=== PATIENT | female | born 1980 | race Caucasian/White ===

== ENCOUNTER 2017-01-21 07:18 | Day surgery (SDC) | payer OTHER ==
[2017-01-19 12:09] VITALS: BMI 39.9
[~2017-01-21 07:18] MED LIST: LACTATED RINGERS 1,000 ML IV SCH; LIDOCAINE 1% 20 ML VIAL (10MG/ML) FOR IV START INTRADERMA PRN
[2017-01-21 07:35] VITALS: RESP 16; TEMP 98.2
--- NOTE | 2017-01-21 07:36 | P.GSHP ---
History of Present Illness H&P Date: 01/21/17 CHIEF COMPLAINT: GERD HISTORY OF PRESENT ILLNESS: The patient is a 36-year-old female who presents reports gastroesophageal reflux disease. Upper endoscopy was offered for further evaluation and management. PAST MEDICAL HISTORY: Please see list. PAST SURGICAL HISTORY: Please see list. MEDICATIONS: Please see list. ALLERGIES: Please see list. SOCIAL HISTORY: No illicit drug use FAMILY HISTORY: No reports of Crohn disease or ulcerative colitis. REVIEW OF ORGAN SYSTEMS: CONSTITUTIONAL: No reports of fevers or chills. GI: Denies any blood in stools or constipation. PHYSICAL EXAM: VITAL SIGNS: Stable GENERAL: Well-developed and pleasant in no acute distress. HEENT: No scleral icterus. Extraocular movements grossly intact. Moist buccal mucosa. NECK: Supple without lymphadenopathy. CHEST: Unlabored respirations. Equal bilateral excursions. CARDIOVASCULAR: Regular rate and rhythm. Distal 2+ pulses. ABDOMEN: Soft, nondistended. MUSCULOSKELETAL: No clubbing, cyanosis, or edema. ASSESSMENT: 1. Gastroesophageal reflux disease PLAN: 1. Recommend proceeding with an upper endoscopy Past Medical History Past Medical History: Diabetes Mellitus, GERD/Reflux Additional Past Medical History / Comment(s): SPINA BIFIDA-HAS A COMPOSITE LAYUP WORKER SHUNT, KIDNEY STONES, chiari malformation History of Any Multi-Drug Resistant Organisms: None Reported Date of last positivie culture/infection: 03/28/2015 MDRO Source:: rt knee Past Surgical History: Section, Cholecystectomy, Orthopedic Surgery, Ventriculoperitoneal Shunt Additional Past Surgical History / Comment(s): RIGHT ANKLE, RIGHT KIDNEY REMOVED , SPINE CLOSURE Past Anesthesia/Blood Transfusion Reactions: Previous Problems w/ Anesthesia, Motion Sickness Additional Past Anesthesia/Blood Transfusion Reaction / Comment(s): slow to wake up Past Psychological History: Anxiety, Bipolar, Depression, PTSD Smoking Status: Current every day smoker Past Alcohol Use History: Occasional Additional Past Alcohol Use History / Comment(s): SMOKED SINCE AGE 24 Past Drug Use History: None Reported - Past Family History Father History Unknown: Yes Mother Family Medical History: Hyperlipidemia Medications and Allergies Home Medications Medication Instructions Recorded Confirmed Type Insulin Glargine [Lantus] 70 unit SQ HS 12/14/14 01/19/17 History metFORMIN HCL [Glucophage] 1,000 mg PO BID 12/14/14 01/19/17 History Aspirin/Acetaminophen/Caffeine 1 tab PO DAILY PRN 01/06/17 01/19/17 History [Excedrin Migraine Caplet] Gabapentin [Neurontin] 300 mg PO BID 01/06/17 01/19/17 History Topiramate [Topamax] 25 mg PO BID 01/06/17 01/19/17 History Allergies Allergy/AdvReac Type Severity Reaction Status Date / Time niacin Allergy Rash/Hives Verified 01/19/17 12:01 tetrahydrozoline HCl Allergy Rash/Hives Verified 01/19/17 12:01 [From Visine] Surgical - Exam Vital Signs Temp Pulse Resp BP Pulse Ox 98.2 F 87 16 116/82 98 01/21/17 07:33 01/21/17 07:33 01/21/17 07:33 01/21/17 07:33 01/21/17 07:33
[2017-01-21 08:04] LABS: Glucose,Whole Blood 423 mg/dL (75-99)
[2017-01-21] MEDS ORDERED: INSULIN LISPRO (humaLOG) 300 UNIT/3 ML VIAL SQ ONE (08:10)
[2017-01-21 09:08] LABS: Glucose,Whole Blood 409 mg/dL (75-99)
[2017-01-21] MEDS ORDERED: LIDOCAINE 1% INJ 10MG/ML (20 ML MDV) ONE (09:11)
[2017-01-21] MEDS ORDERED: PROPOFOL 10 MG/ML 20 ML VIAL IV ONE (09:11)
--- NOTE | 2017-01-21 09:31 | P.PCN ---
Date of Procedure: 01/21/17 Description of Procedure: PREOPERATIVE DIAGNOSIS: Gastroesophageal reflux disease Epigastric abdominal pain POSTOPERATIVE DIAGNOSIS: Gastroesophageal reflux disease Epigastric abdominal pain Acute with chronic gastritis Duodenitis. OPERATION: Esophagogastroduodenoscopy with biopsies along antrum and duodenum. SURGEON: Cassy Narvaez MD ANESTHESIA: MAC. INDICATIONS: The patient is a 36-year-old female who presents with a history of epigastric abdominal pain and gastroesophageal reflux disease. Benefits and risks of the procedure were described. Informed consent was obtained. DESCRIPTION: The patient was brought into the endoscopy suite and laid in the left lateral decubitus position. An Olympus gastroscope was passed along the posterior oropharynx down to the distal esophagus where the squamocolumnar junction was encountered at 36 cm from the incisors. The stomach was entered and moderate retained food was found. Additional findings are listed below. Biopsies with cold forceps were obtained of the antrum. The first through third portion of the duodenum was examined and remarkable for duodenitis. Retroflexion of the scope confirmed Hill grade III lower esophageal valve. The squamocolumnar junction demostrated mild chronic LA grade A erosive esophagitis. The stomach was desufflated. The patient tolerated the procedure well. FINDINGS: Squamocolumnar junction 36 cm from the incisors. Diaphragmatic hiatus at 36 cm from the incisors Hill grade 3 lower esophageal valve. LA grade A erosive esophagitis, mild. Acute and chronic gastritis along the antrum. Retained food along stomach. Active duodenitis. RECOMMENDATIONS: Further recommendations pending results of pathology report. Upper endoscopy as needed. Plan - Discharge Summary Discharge Medication List Insulin Glargine [Lantus] 70 unit SQ HS 12/14/14 [History] metFORMIN HCL [Glucophage] 1,000 mg PO BID 12/14/14 [History] Aspirin/Acetaminophen/Caffeine [Excedrin Migraine Caplet] 1 tab PO DAILY PRN [History] Gabapentin [Neurontin] 300 mg PO BID 01/06/17 [History] Topiramate [Topamax] 25 mg PO BID 01/06/17 [History]
[2017-01-21 09:36] LABS: Glucose,Whole Blood 295 mg/dL (75-99)
[2017-01-21 10:03] VITALS: BP 134/86; PULSE 91
== END 2017-01-21 10:14 | disposition home or self-care (01) ==
LOC: ORWHC2ENDO 07:18
PROVIDERS: ATTEND Surgery Plastic and Reconstructive Surgery
DX: K29.50 Unspecified chronic gastritis without bleeding (principal); K22.10 Ulcer of esophagus without bleeding; K29.80 Duodenitis without bleeding; F17.200 Nicotine dependence, unspecified, uncomplicated; E11.9 Type 2 diabetes mellitus without complications; Z79.4 Long term (current) use of insulin; Z79.84 Long term (current) use of oral hypoglycemic drugs; Q05.9 Spina bifida, unspecified; Z79.899 Other long term (current) drug therapy; Z88.8 Allergy status to other drugs, medicaments and biological substances
CPT/HCPCS: 88305; 88342; 84703; 43239; J2001; J2704; 76536; 96372; 99283

== ENCOUNTER 2017-01-21 11:32 | Day surgery (SDC) | payer OTHER ==
[2017-01-21 13:04] LABS: Glucose,Whole Blood 357 mg/dL (75-99)
[2017-01-21 13:59] VITALS: PULSE 96; RESP 16; TEMP 98
[2017-01-21 14:00] VITALS: BP 139/82
--- NOTE | 2017-01-21 17:38 | US ---
Discontinued fine-needle aspiration thyroid HISTORY: Thyroid nodule Patient presented with a blood sugar in the 300-400 range. Patient will be rescheduled. IMPRESSION: No fine-needle aspiration performed at this time
== END 2017-01-21 13:30 | disposition home or self-care (01) ==
LOC: RADPROMAIN 11:32
PROVIDERS: ATTEND Surgery Plastic and Reconstructive Surgery
DX: E04.1 Nontoxic single thyroid nodule (principal)
CPT/HCPCS: 76536

== ENCOUNTER 2017-02-17 12:13 | Day surgery (SDC) | payer OTHER ==
[2017-02-17 12:48] VITALS: RESP 18; TEMP 98
--- NOTE | 2017-02-17 13:49 | US ---
EXAMINATION TYPE: US thyroid st tissue head/neck DATE OF EXAM: 02/17/2017 COMPARISON: NONE CLINICAL HISTORY: E04.1 thyroid nodule. GLAND SIZE: Right Lobe: 6.8 x 2.4 x 2.1 cm Overall Parenchyma: homogenous Left Lobe: 5.3 x 1.7 x 1.7 cm Overall Parenchyma: homogeneous Isthmus Thickness: 0.7 cm NODULES RIGHT: # of nodules measured on right: 1 1. 3.5 x 2.2 x 3.2cm isoechoic solid nodule at the lower pole with well-defined margins. This nodul e is wider than tall and shows intranodular vascularity. LEFT: # of nodules measured on left: 0 ISTHMUS: # of nodules measured in the isthmus: 0 Bilateral neck scanned, no evidence of lymphadenopathy. IMPRESSION: SOLITARY RIGHT-SIDED 3.5 CM NODULE. CONSIDERATION MIGHT BE GIVEN TO BIOPSYING THIS LESION.
[2017-02-17 14:26] VITALS: BP 156/81; PULSE 95
--- NOTE | 2017-02-17 15:26 | US ---
EXAMINATION TYPE: US FNA thyroid DATE OF EXAM: 02/17/2017 COMPARISON: Ultrasound same day HISTORY: Thyroid nodule. Maximal barrier technique was utilized. After informed consent, skin overlying the lesion was locali zed with ultrasound and the overlying skin prepped and draped. Ultrasound was utilized using sterile technique. Lidocaine was used for local anesthesia. Five passes with a 25-gauge needle were made int o the nodule and aspirated specimen was submitted to cytology. Following the procedure hemostasis ac hieved. No immediate complication. The patient discharged in stable condition. IMPRESSION: STATUS POST ULTRASOUND GUIDED FINE NEEDLE ASPIRATION OF THYROID NODULE, PATHOLOGY IS PEND ING. THIS PROCEDURE WAS PERFORMED BY THE UNDERSIGNED.
== END 2017-02-17 14:25 | disposition home or self-care (01) ==
LOC: RADPROMAIN 12:13
PROVIDERS: ATTEND Surgery Plastic and Reconstructive Surgery
DX: C73 Malignant neoplasm of thyroid gland (principal)
CPT/HCPCS: 10022; 76536; 76942; 88173; 88305

== ENCOUNTER 2017-04-16 11:23 | Observation (INO) | payer OTHER ==
[2017-04-10 09:18] VITALS: BMI 44.8
--- NOTE | 2017-04-16 11:12 | P.GSHP ---
History of Present Illness H&P Date: 04/16/17 CHIEF COMPLAINT: GERD HISTORY OF PRESENT ILLNESS: Nathalia Santillan is a very young 36-year-old female with poorly controlled diabetes. Her blood sugars average over 300, even up to 500. 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 She is pending consultation with her tube bender in mid April. She now presents for further evaluation and management. Separately, she comes in wheelchair bound with history of spina bifida including STRONG NITRIC OPERATOR shunt. PAST MEDICAL HISTORY: Please see list. PAST SURGICAL HISTORY: Please see list. MEDICATIONS: Please see list. ALLERGIES: Please see list. SOCIAL HISTORY: No illicit drug use FAMILY HISTORY: No reports of Crohn disease or ulcerative colitis. REVIEW OF ORGAN SYSTEMS: Endocrine: History of poorly controlled diabetes, including now thyroid cancer. CONSTITUTIONAL: No fevers or chills. HEENT: Denies any trouble with vision, hearing or nosebleeds. Has difficulty swallowing. LYMPHATIC: Has lumps and bumps around the neck. RESPIRATORY: Denies pneumonia. Denies any troubles with breathing or dyspnea on exertion. CARDIOVASCULAR: Denies any chest pain, palpitations, or recent heart attacks. GASTROINTESTINAL: Denies fatty food intolerance. Denies change in bowel habits and gas bloat. Has GERD GENITOURINARY: Denies any blood in urine or increased urinary frequency. MUSCULOSKELETAL: Has back pain, stiffness or joint arthritis. NEUROLOGIC: Has numbness or tingling along the distal extremities. Has seizure disorders and headaches. PSYCHIATRIC: Denies any depression or suicidal ideation. HEMATOLOGIC: Denies any abnormal bleeding or bruising. BREASTS: Denies any breast lumps, pain or nipple discharge. PHYSICAL EXAM: Vital signs: T: 98.7 degrees. P: 85, R: 16, BP: 132/88 Neck: History of thyroid nodule. GENERAL: Well developed and in no acute distress. Pleasant. HEENT: No sclera icterus. Extraocular movements grossly intact. Moist buccal mucosa. Head is atraumatic, normocephalic. Hears conversational speech. No nasal drainage. CHEST: Non-labored respirations and equal bilateral excursions. CARDIOVASCULAR: Regular rate and rhythm. Palpable 2+ radial pulses. ABDOMEN: Soft. Non-tender. Nondistended. MUSCULOSKELETAL: No clubbing, cyanosis or edema. NEUROLOGIC: Wheelchair bound with paraplegia. PSYCH: Appropriate affect. Alert and oriented to person, place and time. PATHOLOGY REPORT: Consistent with follicular thyroid cancer. ASSESSMENT: 1. Follicular thyroid cancer. 2. Wheelchair bound, history of spina bifida. 3. Poorly controlled diabetes, insulin dependent. 4. Morbid obesity. PLAN: 1. I have had over a 25+ minute conversation regarding the risks of poorly controlled diabetes including loss of vision and kidney failure, as well as neuropathy. 2. I have put her on a 2-week high protein low calorie diet, which will also help with her blood sugars. She was advised to cut down on her carbohydrates as she often selects high starchy foods and breads. 3. She has already established a relationship with tube bender. 4. As she presents with high comorbidities, I have reviewed with her the complications of potential recurrent injury including laryngeal nerve injury as well as bleeding, infection and need for possible neck dissection. 5. Recommended inpatient hospitalization anticipated for at least 2 nights. 6. She will need diabetes education as well. Past Medical History Past Medical History: Cancer, Diabetes Mellitus, GERD/Reflux, Hypertension, Skin Disorder, Thyroid Disorder Additional Past Medical History / Comment(s): SPINA BIFIDA-HAS A STRONG NITRIC OPERATOR SHUNT, chiari malformation, migraines, hx heart murmer, hiatal hernia, chronic constipation, "brown spots on skin", thyroid cancer, self catheterization, hx impacted kidney stone, wheelchair-limited wt bearing on rt side History of Any Multi-Drug Resistant Organisms: None Reported Date of last positivie culture/infection: 03/28/2015 MDRO Source:: rt knee Past Surgical History: Section, Cholecystectomy, Orthopedic Surgery, Ventriculoperitoneal Shunt Additional Past Surgical History / Comment(s): RIGHT ANKLE fusion, RIGHT KIDNEY REMOVED, SPINE CLOSURE surgery form spina bifida, tendon release lin ankles and behind rt knee, Past Anesthesia/Blood Transfusion Reactions: Previous Problems w/ Anesthesia Additional Past Anesthesia/Blood Transfusion Reaction / Comment(s): slow to wake up Smoking Status: Current every day smoker - Past Family History Father History Unknown: Yes Mother Family Medical History: No Reported History Medications and Allergies Home Medications Medication Instructions Recorded Confirmed Type Insulin Glargine [Lantus] 70 unit SQ HS 12/14/14 04/10/17 History metFORMIN HCL [Glucophage] 1,000 mg PO BID 12/14/14 04/10/17 History Gabapentin [Neurontin] 300 mg PO BID 01/06/17 04/10/17 History Topiramate [Topamax] 25 mg PO BID 01/06/17 04/10/17 History Metoclopramide HCl [Reglan] 10 mg PO TID 04/10/17 04/10/17 History Omeprazole [PriLOSEC] 20 mg PO AC-BRKFST 04/10/17 04/10/17 History Allergies Allergy/AdvReac Type Severity Reaction Status Date / Time niacin Allergy Rash/Hives Verified 04/10/17 09:04 tetrahydrozoline HCl Allergy Rash/Hives Verified 04/10/17 09:04 [From Visine]
[~2017-04-16 11:23] MED LIST changes: +DEXAMETHASONE SOD PHOSPHATE 10 MG/ML 1 ML VIAL IV ONE; +ENOXAPARIN 30 MG/0.3 ML SYRINGE SQ ONE; -LACTATED RINGERS 1,000 ML IV SCH; +MIDAZOLAM 2 MG/2 ML VIAL IV PRN; +ONDANSETRON 4 MG/2 ML VIAL IVP ONE; +Pre Op ABX Message 1 EACH MISC MISCELLANE ONE; +SCOPOLAMINE 1.5MG/72HR PATCH TRANSDERM ONE; +ceFAZolin 2 GM in SODIUM CHLORIDE 0.9% 100 ML IVPB ONE
[2017-04-16] MEDS ORDERED: LACTATED RINGERS 1,000 ML IV ONE ×3 (11:42→18:36)
[2017-04-16 12:04] LABS: Basophils % (A) 0 %; CH 30.9; CHCM 34.9; Eosinophils # (A) 0.2 k/uL (0-0.7); Eosinophils % (A) 3 %; HCT 41.6 % (34.0-46.0); HDW 2.79; HGB 14.1 gm/dL (11.4-16.0); Luc % (Auto) 1; Lymphocytes # (A) 2.1 k/uL (1.0-4.8); Lymphocytes % (A) 27 %; MCH 30.2 pg (25.0-35.0); MCV 88.8 fL (80.0-100.0); Mean Platelet Volume 7.6; Monocytes # (A) 0.3 k/uL (0-1.0); Monocytes % (A) 3 %; Neutrophils # (A) 5.2 k/uL (1.3-7.7); Neutrophils % (A) 66 %; RBC 4.69 m/uL (3.80-5.40); RDW 13.6 % (11.5-15.5); WBC (Perox) 8.16
[2017-04-16 12:17] LABS: ALT 48 U/L (9-52); AST 23 U/L (14-36); Alkaline Phosphatase 66 U/L (38-126); Anion Gap 13 mmol/L; Blood Urea Nitrogen 9 mg/dL (7-17); Calcium 9.2 mg/dL (8.4-10.2); Carbon Dioxide 19 mmol/L (22-30); Chloride 107 mmol/L (98-107); Glucose 162 mg/dL (74-99); Non-African American GFR(MDRD) >60 (>60 ml/min/1.73 sqM); Potassium 4.5 mmol/L (3.5-5.1); Sodium 139 mmol/L (137-145); Total Bilirubin 0.3 mg/dL (0.2-1.3); Total Protein 6.9 g/dL (6.3-8.2)
[2017-04-16] MEDS ORDERED: ePHEDrine SULFATE/0.9% NACL/PF 50 MG/5 ML SYRINGE IV ONE (12:56)
[2017-04-16] MEDS ORDERED: HYDROmorphone (PF) 1 MG/ML ONE (12:56)
[2017-04-16] MEDS ORDERED: LIDOCAINE 1% INJ 10MG/ML (20 ML MDV) ONE (12:56)
[2017-04-16] MEDS ORDERED: PROPOFOL 10 MG/ML 20 ML VIAL IV ONE (12:56)
[2017-04-16] MEDS ORDERED: fentaNYL (PF) 50 MCG/ML 2 ML AMP ONE (12:56)
[2017-04-16] MEDS ORDERED: ePHEDrine 50 MG/ML 1 ML AMP ONE (12:56)
[2017-04-16] MEDS ORDERED: MIDAZOLAM 2 MG/2 ML VIAL ONE (12:56)
[2017-04-16] MEDS ORDERED: BUPIVACAINE (PF) 0.5% 30 ML VIAL SQ ONE (13:48)
[2017-04-16] MEDS ORDERED: ONDANSETRON 4 MG/2 ML VIAL IVP PRN (17:06)
[2017-04-16] MEDS ORDERED: NALOXONE 0.4 MG/ML 1 ML VIAL IV PRN (17:06)
--- NOTE | 2017-04-16 17:06 | P.PCN ---
Date of Procedure: 04/16/17 Preoperative Diagnosis: Thyroid cancer, right lobe, uncontrolled diabetes type 2, spina bifida, wheelchair bound, hypertension, history of dysphagia, morbid obesity Postoperative Diagnosis: Same Procedure(s) Performed: Total thyroidectomy with neuromuscular stimulator Implants: Anesthesia: GETA, local Surgeon: Cassy Narvaez Estimated Blood Loss (ml): 50 Pathology: other (Total thyroidectomy with right anterior suture along right thyroid nodule) Condition: stable Disposition: floor Indications for Procedure: Operative Findings: No lymphadenopathy palpated along the entire neck, encased right thyroid nodule inferior lobe, parathyroids identified and spared during procedure. Description of Procedure:
[2017-04-16 17:47] LABS: Glucose,Whole Blood 225 mg/dL (75-99)
[2017-04-16] MEDS ORDERED: INSULIN LISPRO (humaLOG) 300 UNIT/3 ML VIAL SQ ONE (17:47)
[2017-04-16] MEDS: HYDROmorphone 1 MG/ML 1 ML SYRINGE IVP PRN ×3 (17:59→22:31)
[2017-04-16 18:52] LABS: Calcium 8.9 mg/dL (8.4-10.2); Magnesium 1.2 mg/dL (1.6-2.3)
[2017-04-16] MEDS: LACTATED RINGERS 1,000 ML IV SCH (19:53)
[2017-04-16] MEDS: SODIUM CHLORIDE 0.9% 1,000 ML IV SCH (19:54)
[2017-04-16 19:59] LABS: Hemoglobin A1C 10.5 % (4.2-6.1)
[2017-04-16] MEDS: INSULIN LISPRO (humaLOG) 300 UNIT/3 ML VIAL SQ SCH (20:27)
[2017-04-16] MEDS: INSULIN GLARGINE 100 UNIT/ML 10 ML VIAL SQ SCH (20:37)
[2017-04-16] MEDS: MAGNESIUM SULFATE-D5W PMX 1 GM in DEXTROSE/WATER 1 100ML.BAG IVPB SCH (20:37)
[2017-04-16] MEDS: GABAPENTIN 300 MG CAP PO SCH (20:48)
[2017-04-16] MEDS: FAMOTIDINE 20 MG TAB PO SCH (20:48)
[2017-04-16] MEDS: metFORMIN 500 MG TAB PO SCH (20:48)
[2017-04-16] MEDS: METOCLOPRAMIDE 10 MG TAB PO SCH (20:48)
[2017-04-16] MEDS: TOPIRAMATE 25 MG TAB PO SCH (20:48)
[2017-04-17] MEDS: INSULIN LISPRO (humaLOG) 300 UNIT/3 ML VIAL SQ SCH ×4 (01:13→18:31)
[2017-04-17] MEDS: MAGNESIUM SULFATE-D5W PMX 1 GM in DEXTROSE/WATER 1 100ML.BAG IVPB SCH ×5 (01:14→20:12)
[2017-04-17] MEDS: ceFAZolin 2 GM in SODIUM CHLORIDE 0.9% 100 ML IVPB SCH ×2 (02:13→10:41)
[2017-04-17] MEDS: HYDROmorphone 1 MG/ML 1 ML SYRINGE IVP PRN ×2 (05:26→10:44)
[2017-04-17 07:08] LABS: Glucose,Whole Blood 130 mg/dL (75-99)
[2017-04-17 07:59] LABS: Basophils % (A) 0 %; CH 30.7; CHCM 33.9; Eosinophils # (A) 0.1 k/uL (0-0.7); Eosinophils % (A) 1 %; HCT 39.6 % (34.0-46.0); HDW 2.72; Luc % (Auto) 1; Lymphocytes % (A) 20 %; MCH 29.8 pg (25.0-35.0); MCHC 32.7 g/dL (31.0-37.0); MCV 91.1 fL (80.0-100.0); Mean Platelet Volume 7.2; Monocytes # (A) 0.4 k/uL (0-1.0); Monocytes % (A) 4 %; Neutrophils # (A) 7.3 k/uL (1.3-7.7); Neutrophils % (A) 74 %; RBC 4.34 m/uL (3.80-5.40); RDW 13.7 % (11.5-15.5); WBC 9.9 k/uL (3.8-10.6); WBC (Perox) 9.96
[2017-04-17 08:06] LABS: Calcium 8.1 mg/dL (8.4-10.2); Magnesium 1.9 mg/dL (1.6-2.3); Phosphorous 4.9 mg/dL (2.5-4.5)
[2017-04-17] MEDS: ENOXAPARIN 30 MG/0.3 ML SYRINGE SQ SCH (08:12)
[2017-04-17] MEDS: LACTATED RINGERS 1,000 ML IV SCH (08:27)
[2017-04-17] MEDS: metFORMIN 500 MG TAB PO SCH (09:02)
[2017-04-17] MEDS: FAMOTIDINE 20 MG TAB PO SCH (09:02)
[2017-04-17] MEDS: TOPIRAMATE 25 MG TAB PO SCH ×2 (09:02→20:14)
[2017-04-17] MEDS: GABAPENTIN 300 MG CAP PO SCH (09:02)
[2017-04-17] MEDS: METOCLOPRAMIDE 10 MG TAB PO SCH ×2 (09:02→18:20)
[2017-04-17 11:49] LABS: Glucose,Whole Blood 103 mg/dL (75-99)
--- NOTE | 2017-04-17 15:20 | P.PN ---
Progress Note - Text Patient seen and evaluated. Dressing along the neck saturated and change at bedside. Pedroza catheter still present. Patient is able to phonate A, E, I, O, U and Y without difficulty. Continue with hospitalization with liquid diet in the interim.
[2017-04-17] MEDS ORDERED: CALCIUM GLUCONATE 1,000 MG in SODIUM CHLORIDE 0.9% 100 ML IVPB ONE (15:21)
[2017-04-17] MEDS: HYDROcodone/APAP 5-325MG 1 EACH TAB PO PRN (16:16)
--- NOTE | 2017-04-17 17:19 | CONS ---
DATE OF CONSULTATION: 04/17/2017 REASON FOR CONSULTATION: Medical management requested by Dr. Narvaez. This is a 36-year-old patient of Dr. Solorzano with extensive medical history. The patient was found to have follicular cancer of the thyroid, has undergone a total thyroidectomy. Started on a liquid diet. Patient's chronic stable medical conditions include diabetes, GERD, hypertension, spina bifida with a NEIGHBORHOOD COORDINATOR shunt, Chiari malformation. The patient does self-catheterize herself. Uses a wheelchair to get about. Currently sitting up in a chair, comfortable. No nausea or vomiting. No chest pain. REVIEW OF SYSTEMS: CONSTITUTIONAL: None. HEENT: None. RESPIRATORY: None. CARDIOVASCULAR: None. GASTROINTESTINAL: Heartburn. GENITOURINARY: Urine retention. DERMATOLOGIC: None. HEMATOLOGIC: None. LYMPHATICS: None. PSYCHIATRIC: None. NEUROLOGIC: Uses a wheelchair to get about. PAST MEDICAL HISTORY: Diabetes mellitus type 2, GERD, hypertension, follicular thyroid cancer, spina bifida with a NEIGHBORHOOD COORDINATOR shunt, Chiari malformation, migraines, hiatal hernia, chronic constipation, chronic urinary retention. Uses a wheelchair. PAST SURGICAL HISTORY: , cholecystectomy, NEIGHBORHOOD COORDINATOR shunt, right ankle fusion , right kidney removed, spinal closure surgery for spina bifida, tendon release of right lateral ankle and right knee, thyroidectomy. PAST PSYCH HISTORY: Bipolar disorder, PTSD. SOCIAL HISTORY: Smoking a 1/2 pack a day for the last 10 years. Does do marijuana. . FAMILY HISTORY: Reviewed, noncontributory to presentation. HOME MEDICATIONS: 1. Metformin 1000 mg p.o. b.i.d. 2. Topamax 25 mg b.i.d. 3. Prilosec 20 mg at breakfast. 4. Reglan 10 mg p.o. t.i.d. 5. Lantus 70 units subcu q.h.s. 6. Neurontin 300 mg p.o. b.i.d. ALLERGIES: NIACIN AND TETRAHYDROZOLINE. On examination, temperature 97.9, pulse 99, respirations 16, blood pressure 111/ 75, pulse ox 96% on 3 liters. GENERAL APPEARANCE: Well built, BMI 44.8, sitting on chair awake. EYES: Pupils equal. Conjunctivae normal. HEENT: Oral cavity normal. NECK: Dressing in place, unable to assess. RESPIRATORY EFFORT: Lungs are fair CARDIOVASCULAR: First and second normal. No edema. ABDOMEN: Soft, nontender. Liver and spleen not palpable. LYMPHATIC: No lymph node in neck and axillae. PSYCHIATRIC: Alert and oriented x3. Mood and affect normal. NEUROLOGIC: Cranial nerves grossly intact. INVESTIGATIONS: White count 9.9, hemoglobin 13. Accu-Cheks are noted. PTH less than 5.5. TSH normal. ASSESSMENT: 1. Total thyroidectomy for follicular cell cancer. 2. Morbid obesity, body mass index 44.8. 3. Diabetes mellitus type 2, chronically on insulin. 4. Gastroesophageal reflux disease. 5. Essential hypertension. 6. Spina bifida.with a ventriculoperitoneal shunt and a Chiari malformation. 7. Hiatal hernia. 8. Chronic constipation. 9. Chronic urinary retention with needing self-catheterization. 10. Chronic medical debility. Patient is wheelchair bound. PLAN: Patient's home medications will be resumed. Accu-Cheks will be closely followed. Getting IV fluids. Diet is to be advanced as per Dr. Narvaez. Care was discussed with the patient. Patient should follow up with Dr. Solorzano after she is discharged. Thank you Dr. Narvaez. [facility] HEALTHJoanne
[2017-04-17 17:42] LABS: Glucose,Whole Blood 99 mg/dL (75-99)
[2017-04-17] MEDS: SODIUM CHLORIDE 0.9% 1,000 ML IV SCH ×2 (18:22→20:12)
--- NOTE | 2017-04-17 20:07 | P.PN ---
Progress Note - Text Patient seen and evaluated. She is doing much better. Potential discharge in the morning.
[2017-04-17] MEDS ORDERED: metFORMIN 500 MG TAB PO SCH (21:00)
[2017-04-18] MEDS: FAMOTIDINE 20 MG TAB PO SCH ×2 (00:06→09:32)
[2017-04-18] MEDS: metFORMIN 500 MG TAB PO SCH ×2 (00:07→09:32)
[2017-04-18] MEDS: GABAPENTIN 300 MG CAP PO SCH ×2 (00:07→09:32)
[2017-04-18 00:17] LABS: Glucose,Whole Blood 101 mg/dL (75-99)
[2017-04-18] MEDS: INSULIN GLARGINE 100 UNIT/ML 10 ML VIAL SQ SCH (00:19)
[2017-04-18] MEDS: HYDROcodone/APAP 5-325MG 1 EACH TAB PO PRN ×2 (00:39→17:50)
[2017-04-18] MEDS: METOCLOPRAMIDE 10 MG TAB PO SCH ×3 (01:22→16:03)
[2017-04-18] MEDS: INSULIN LISPRO (humaLOG) 300 UNIT/3 ML VIAL SQ SCH ×4 (01:22→17:46)
[2017-04-18 05:26] LABS: Glucose,Whole Blood 82 mg/dL (75-99)
[2017-04-18] MEDS: LACTATED RINGERS 1,000 ML IV SCH (06:18)
[2017-04-18] MEDS ORDERED: PANTOPRAZOLE 40 MG TABLET PO SCH (07:30)
[2017-04-18] MEDS ORDERED: SODIUM CHLORIDE 0.9% 2,000 ML IV ONE (09:08)
[2017-04-18 09:30] VITALS: RESP 16
[2017-04-18] MEDS: ENOXAPARIN 30 MG/0.3 ML SYRINGE SQ SCH (09:32)
[2017-04-18] MEDS: TOPIRAMATE 25 MG TAB PO SCH (09:32)
[2017-04-18] MEDS ORDERED: CALCIUM GLUCONATE 1,000 MG in SODIUM CHLORIDE 0.9% 100 ML IVPB ONE (09:36)
[2017-04-18 09:51] LABS: Anion Gap 7 mmol/L; Blood Urea Nitrogen 5 mg/dL (7-17); Calcium 7.7 mg/dL (8.4-10.2); Carbon Dioxide 25 mmol/L (22-30); Chloride 108 mmol/L (98-107); Glucose 110 mg/dL (74-99); Magnesium 1.3 mg/dL (1.6-2.3); Non-African American GFR(MDRD) >60 (>60 ml/min/1.73 sqM); Phosphorous 3.8 mg/dL (2.5-4.5); Potassium 3.6 mmol/L (3.5-5.1); Sodium 140 mmol/L (137-145)
--- NOTE | 2017-04-18 10:18 | P.PN ---
Progress Note - Text Patient seen and evaluated. She reports occasional numbness around her lips. Labs reviewed with calcium being low including magnesium. She takes Topamax and Neurontin which affects magnesiums resorption. I've recommended correction of her calcium including magnesium. She will be discharged home with calcium including magnesium supplements with vitamin D. We'll also obtain vitamin D sample. Dressing at bedside also changed. Minimal serosanguineous drainage. [place] drains also discontinued. Swelling on the neck also moderately improved. She reports improvement of swallowing. She also reports decreased neck pain. Incision intact and well approximated without signs of cellulitis or infection.
[2017-04-18] MEDS ORDERED: CALCIUM CARBONATE 500 MG CHEWABLE PO PRN (10:20)
[2017-04-18] MEDS ORDERED: CALCITRIOL 0.25 MCG CAP PO SCH (10:30)
[2017-04-18 12:42] LABS: Glucose,Whole Blood 103 mg/dL (75-99)
[2017-04-18] MEDS: MAGNESIUM SULFATE-D5W PMX 1 GM in DEXTROSE/WATER 1 100ML.BAG IVPB SCH ×3 (15:11→17:51)
[2017-04-18 17:49] LABS: Glucose,Whole Blood 97 mg/dL (75-99)
[2017-04-18 20:05] VITALS: BP 135/90; PULSE 104; TEMP 98.6
--- NOTE | 2017-04-18 20:42 | P.PN ---
Progress Note - Text DATE OF SERVICE: 04/18/2017 PRESENTING COMPLAINT: Medical management requested by Dr. Narvaez INTERVAL HISTORY: 36-year-old patient with follicular cancer of the thyroid. Postop day 1 from a total thyroidectomy. 04/18/2017: Patient seen on surgical floor, sitting up in bed appears comfortable mildly anxious, dressing intact, tolerating her diet, has some difficulty swallowing large boluses of food or large boluses of liquid, patient states she is able to take smaller doses of both. Uses a wheelchair to and from the bathroom, no BM yet. REVIEW OF SYSTEMS: Done for constitutional ,cardiovascular, GI, pulmonary with relevant findings as above. CURRENT MEDICATIONS CALCITRIOL, LOVENOX, NEURONTIN, DILAUDID, LANTUS, HUMALOG, GLUCOPHAGE, ZOFRAN, PROTONIX, TOPAMAX. PHYSICAL EXAM VITAL SIGNS: Temperature 98.9, pulse 110, respiratory rate 16, blood pressure 144/88, oxygen saturation 95% on room air. GENERAL APPEARANCE: sitting up in bed, not in distress. EYES: Pupils equal. Conjunctiva normal. NECK: unable to assess, midline dressing in place. RESPIRATORY: Respiratory effort normal. Lung fair air exchange. CARDIOVASCULAR: First and second sounds normal. No edema. ABDOMEN: Soft. Liver and spleen not palpable. No tenderness. No mass palpable. PSYCHIATRY: Alert and oriented x3. Mood and affect normal. INVESTIGATIONS: Sodium 140, potassium 3.6, chloride 108, 15 creatinine 0.61 calcium 7.7 magnesium 1.3 ASSESSMENT: -Total thyroidectomy for follicular cell cancer area -Orbital obesity, body mass index 44.8. -Diabetes mellitus type 2, chronically on insulin. -Gastroesophageal reflux disease. -Essential hypertension. -Spina bifida with a ventriculoperitoneal shunt and a Chiari malformation -Hiatal hernia, -Chronic constipation. -Chronic urinary retention with needing self-catheterization -Chronic medical debility. Patient is wheelchair bound PLAN: Continue IV fluids will monitor Accu-Cheks diet advanced per Gen. surgery preference. Electrolytes replaced. We'll follow labs in the morning Plan of care is discussed with the patient we will continue to follow closely DIRECTOR GOVERNMENT statement: Patient was seen and examined by nurse practitioner Sandi Hirsch and all elements of the case discussed with attending Dr. Frost
--- NOTE | 2017-04-19 19:25 | PN ---
DATE OF SERVICE: 04/18/17 PRESENTING COMPLAINT: Thyroidectomy. INTERVAL HISTORY: The patient is status post thyroidectomy. Having some trouble with liquids. Able to swallow with chewing her food well. Pain is controlled. No nausea or vomiting. No chest pain or shortness of breath. Review of systems done for constitutional, cardiovascular, GI, pulmonary, neck , relevant findings as above. Current medications are reviewed. On examination, temperature 98.9, pulse 110. Respirations 16. Blood pressure 124/88. Pulse ox 95% on room air. General appearance sitting up in bed, comfortable. Eyes: Pupils equal, conjunctivae normal. Neck dressing in place. Respiratory effort normal. Lungs clear. Cardiovascular: First and second sounds normal. Abdomen soft, nontender. Liver and spleen not palpable. PSYCH : Alert and oriented times three. Mood and affect normal. Investigations: Potassium 3.6, Accu-Cheks noted. ASSESSMENT: 1. Total thyroidectomy for follicular cell cancer. 2. Slight dysphagia from above surgery, especially to fluids and liquids. 3. Morbid obesity, BMI 44.8. 4. Diabetes mellitus type 2. Currently on insulin. 5. Gastroesophageal reflux disease. 6. Essential hypertension. 7. Spina bifida, with BP shunt and Chiari malformation. 8. Hiatal hernia. 9. Chronic constipation. 10. Chronic urine retention requiring self catheterization. PLAN: Continue current medication and treatment plan. Care was discussed with the patient. Thank you Dr. Narvaez. [facility]
--- NOTE | 2017-04-19 20:14 | P.PN ---
Subjective Principal diagnosis: Thyroid cancer The patient is a 36-year-old female who is status post total thyroidectomy for thyroid cancer. She reports initial trouble with swallowing secondary to neck discomfort and pain. She has history of spina bifida and is wheelchair bound. Patient is able to phonate A, E, I, O, U and Y without difficulty. Objective - Vital Signs Vital signs: Vital Signs Temp 97.5 F L 04/17/17 08:09 Pulse 98 04/17/17 08:09 Resp 16 04/17/17 08:09 BP 119/67 04/17/17 08:09 Pulse Ox 97 04/17/17 08:09 Intake & Output 04/16/17 04/17/17 04/17/17 18:59 06:59 18:59 Intake Total 2100 850 125 Output Total 400 1800 1250 Balance 1700 -950 -1125 Weight 90.718 kg 90.718 kg Intake: IV 2100 Intake, IV Titration 800 Amount Lactated Ringers 1,000 ml 800 As IV .[facility] Rx#: [id number] Oral 50 125 Output: Urine 350 1800 1250 Uretheral (Pedroza) 250 Estimated Blood Loss 50 Other: Voiding Method Indwelling Catheter Indwelling Catheter # Voids 2 - Exam GENERAL: Well developed and in no acute distress. Pleasant. HEENT: No sclera icterus. Extraocular movements grossly intact. Moist buccal mucosa. Head is atraumatic, normocephalic. Hears conversational speech. No nasal drainage. NECK: Dressing is serosanguineous soaked. Edema noted along the neck. No signs of cellulitis. CHEST: Non-labored respirations and equal bilateral excursions. CARDIOVASCULAR: Regular rate and rhythm. Palpable 2+ radial pulses. ABDOMEN: Soft, nontender. Nondistended. MUSCULOSKELETAL: Hypoplastic extremities secondary to spina bifida. NEUROLOGIC: No focal or lateralizing signs. Cranial nerves II through XII grossly within normal limits. PSYCH: Appropriate affect. Alert and oriented to person, place and time. - Labs CBC & Chem 7: 04/17/17 07:13 04/18/17 09:17 Labs: Abnormal Lab Results - Last 24 Hours (Table) 04/16/17 04/16/17 04/16/17 Range/Units 05:57 17:45 18:15 POC Glucose (mg/dL) 225 H (75-99) mg/dL Hemoglobin A1c 10.5 H (4.2-6.1) % Calcium (8.4-10.2) mg/dL Phosphorus (2.5-4.5) mg/dL Magnesium 1.2 L (1.6-2.3) mg/dL PTH Intact (14.0-72.0) pg/mL 04/16/17 04/17/17 04/17/17 Range/Units 18:20 07:02 07:13 POC Glucose (mg/dL) 130 H (75-99) mg/dL Hemoglobin A1c (4.2-6.1) % Calcium 8.1 L (8.4-10.2) mg/dL Phosphorus 4.9 H (2.5-4.5) mg/dL Magnesium (1.6-2.3) mg/dL PTH Intact <5.5 L (14.0-72.0) pg/mL 04/17/17 Range/Units 11:45 POC Glucose (mg/dL) 103 H (75-99) mg/dL Hemoglobin A1c (4.2-6.1) % Calcium (8.4-10.2) mg/dL Phosphorus (2.5-4.5) mg/dL Magnesium (1.6-2.3) mg/dL PTH Intact (14.0-72.0) pg/mL Assessment and Plan (1) Follicular thyroid cancer Status: Acute (2) Poorly controlled type 2 diabetes mellitus Status: Acute (3) Spina bifida Status: Acute (4) Wheel chair as ambulatory aid Status: Acute (5) S/P total thyroidectomy Status: Acute (6) Hypomagnesemia Status: Acute (7) ENGINEERING AND SCIENTIFIC PROGRAMMER (ventriculoperitoneal) shunt status Status: Acute (8) Morbid obesity Status: Acute (9) BMI 40.0-44.9, adult Status: Acute (10) Chronic migraine Status: Acute Plan: 1. Recommend change of dressing along the neck. 2. She has moderate edema along the neck and recommend continued hospitalization. 3. Diabetic education for history of poorly controlled diabetes. 4. Recommend treatment with calcium should she develop numbness along the lips. 5. Will need full thyroid panel including parathyroid and vitamin D levels.
--- NOTE | 2017-04-19 20:21 | P.PN ---
Subjective Principal diagnosis: Thyroid cancer The patient is a 36-year-old female who is status post total thyroidectomy for thyroid cancer. She reports occasional numbness around her lips. She takes Topamax and Neurontin which affects magnesiums resorption. She reports improvement of swallowing. She also reports decreased neck pain. She is still able to phonate A, E, I, O, U and Y without difficulty. Objective - Vital Signs Vital signs: Vital Signs Temp 98.9 F 04/18/17 07:00 Pulse 110 H 04/18/17 07:00 Resp 16 04/18/17 07:00 BP 144/88 04/18/17 07:00 Pulse Ox 95 04/18/17 07:00 Intake & Output 04/17/17 04/18/17 04/18/17 18:59 06:59 18:59 Intake Total 125 1550 Output Total 1250 900 Balance -1125 650 Weight 90.718 kg Intake: Intake, IV Titration 600 Amount Sodium Chloride 0.9% 1, 600 000 ml @ 75 mls/hr IV . [id number] [facility] Rx#:[id number] Oral 125 950 Output: Urine 1250 900 Uretheral (Pedroza) 250 500 Other: Voiding Method Indwelling Catheter Self-Catheterization - Exam GENERAL: Well developed and in no acute distress. Pleasant. HEENT: No sclera icterus. Extraocular movements grossly intact. Moist buccal mucosa. Head is atraumatic, normocephalic. Hears conversational speech. No nasal drainage. NECK: Decreased edema and swelling along the neck. Marian drain was discontinued. Dressing along the neck placed. Minimal serosanguineous drainage. Incision intact and well approximated without signs of cellulitis or infection. CHEST: Non-labored respirations and equal bilateral excursions. CARDIOVASCULAR: Regular rate and rhythm. Palpable 2+ radial pulses. ABDOMEN: Soft, nontender. Nondistended. MUSCULOSKELETAL: Hypoplastic extremities secondary to spina bifida. NEUROLOGIC: No focal or lateralizing signs. Cranial nerves II through XII grossly within normal limits. PSYCH: Appropriate affect. Alert and oriented to person, place and time. - Labs CBC & Chem 7: 04/17/17 07:13 04/18/17 09:17 Labs: Abnormal Lab Results - Last 24 Hours (Table) 04/16/17 04/17/17 04/18/17 Range/Units 18:20 11:45 00:10 Chloride (98-107) mmol/L BUN (7-17) mg/dL Glucose (74-99) mg/dL POC Glucose (mg/dL) 103 H 101 H (75-99) mg/dL Calcium (8.4-10.2) mg/dL Magnesium (1.6-2.3) mg/dL PTH Intact <5.5 L (14.0-72.0) pg/mL 04/18/17 Range/Units 09:17 Chloride 108 H (98-107) mmol/L BUN 5 L (7-17) mg/dL Glucose 110 H (74-99) mg/dL POC Glucose (mg/dL) (75-99) mg/dL Calcium 7.7 L (8.4-10.2) mg/dL Magnesium 1.3 L (1.6-2.3) mg/dL PTH Intact (14.0-72.0) pg/mL Assessment and Plan (1) BMI 40.0-44.9, adult Status: Acute (2) Chronic migraine Status: Acute (3) Follicular thyroid cancer Status: Acute (4) Hypomagnesemia Status: Acute (5) Morbid obesity Status: Acute (6) Poorly controlled type 2 diabetes mellitus Status: Acute (7) S/P total thyroidectomy Status: Acute (8) Spina bifida Status: Acute (9) THORACIC MEDICINE PHYSICIAN (ventriculoperitoneal) shunt status Status: Acute (10) Wheel chair as ambulatory aid Status: Acute (11) Hypocalcemia Status: Acute (12) Hypoparathyroidism Status: Acute Plan: 1. Labs reviewed with calcium being low including magnesium. 2. I've recommended correction of her calcium including magnesium. 3. She will be discharged home with calcium including magnesium supplements with vitamin D. 4. We'll also obtain vitamin D sample. 5. Dressing at bedside also changed.
--- NOTE | 2017-04-19 20:24 | P.DS ---
Providers Date of admission: 04/17/17 06:47 Expected date of discharge: 04/18/17 Attending physician: Cassy Narvaez Consults: 04/17/17 07:40 Consult Physician Urgent Consulting Provider: Krunal Frost Consult Reason/Comments: Medical management Do you want consulting provider notified?: Yes Primary care physician: Neo Solorzano - Discharge Diagnosis(es) (1) BMI 40.0-44.9, adult Status: Acute (2) Chronic migraine Status: Acute (3) Follicular thyroid cancer Status: Acute (4) Hypocalcemia Status: Acute (5) Hypomagnesemia Status: Acute (6) Hypoparathyroidism Status: Acute (7) Morbid obesity Status: Acute (8) Poorly controlled type 2 diabetes mellitus Status: Acute (9) S/P total thyroidectomy Status: Acute (10) Spina bifida Status: Acute (11) FUNERAL LOCATION MANAGER (ventriculoperitoneal) shunt status Status: Acute (12) Wheel chair as ambulatory aid Status: Acute Hospital Course: The patient is a 36-year-old female who has been diagnosed with thyroid cancer. She is status post total thyroidectomy. Postoperatively, she was treated for symptomatic hypocalcemia. She initially was symptomatic with numbness along the lips which is now resolved. Prior to discharge, no evidence of recurrent nerve injury was identified. She was tolerating diet. She also had diabetic education referral performed. Pertinent Studies: None. Procedures: Total thyroidectomy. Patient Condition at Discharge: Stable Plan - Discharge Summary New Discharge Prescriptions: New Calcium Citrate/Vitamin D3 [Calcitrate + Vit D Caplet] 2 each PO TID #180 tablet Magnesium Oxide [Magox 400] 400 mg PO BID #30 tablet Calcitriol 0.25 mcg PO DAILY #30 capsule Hydrocodone/Acetaminophen [[place] 5-325] 1 - 2 each PO Q6HR PRN #20 tab PRN Reason: Pain Levothyroxine Sodium [Synthroid] 50 mcg PO DAILY #30 tab No Action Insulin Glargine [Lantus] 70 unit SQ HS Gabapentin [Neurontin] 300 mg PO BID Topiramate [Topamax] 25 mg PO BID Omeprazole [PriLOSEC] 20 mg PO AC-BRKFST Metoclopramide HCl [Reglan] 10 mg PO TID metFORMIN HCL [metFORMIN HCL] 1,000 mg PO BID Discharge Medication List Insulin Glargine [Lantus] 70 unit SQ HS 12/14/14 [History] Gabapentin [Neurontin] 300 mg PO BID 01/06/17 [History] Topiramate [Topamax] 25 mg PO BID 01/06/17 [History] Metoclopramide HCl [Reglan] 10 mg PO TID 04/10/17 [History] Omeprazole [PriLOSEC] 20 mg PO AC-BRKFST 04/10/17 [History] metFORMIN HCL [metFORMIN HCL] 1,000 mg PO BID 04/17/17 [History] Calcitriol 0.25 mcg PO DAILY #30 capsule 04/18/17 [Rx] Calcium Citrate/Vitamin D3 [Calcitrate + Vit D Caplet] 2 each PO TID #180 tablet 04/18/17 [Rx] Hydrocodone/Acetaminophen [[place] 5-325] 1 - 2 each PO Q6HR PRN #20 tab 04/18/17 [Rx] Levothyroxine Sodium [Synthroid] 50 mcg PO DAILY #30 tab 04/18/17 [Rx] Magnesium Oxide [Magox 400] 400 mg PO BID #30 tablet 04/18/17 [Rx] Follow up Appointment(s)/Referral(s): Cassy Narvaez MD [STAFF PHYSICIAN] - 04/21/17 2:00 pm (May be discharged home after infusions) Patient Instructions/Handouts: Calcium Supplement (By mouth), Total Thyroidectomy (DC) Discharge Disposition: HOME SELF-CARE
--- NOTE | 2017-04-19 22:03 | P.OP ---
Date of Procedure: 04/16/17 Preoperative Diagnosis: Postoperative Diagnosis: Procedure(s) Performed: Implants: Indications for Procedure: Operative Findings: Description of Procedure: SURGEON: YFN HAYDEN MD ELECTRICIAN SHIP: ANMOL Tineo PREOPERATIVE DIAGNOSES: 1. Follicular thyroid cancer. 2. History of dysphagia secondary to thyroid compression. 3. Dyspnea from thyroid compression. 4. Morbid obesity due to excess calories. 5. Body mass index of 44.8. 6. Diabetes type 2, insulin-dependent, poorly controlled. 7. Right inferior thyroid nodule, 4 cm. 8. Gastroesophageal reflux disease. 9. Chronic migraines. 10. Spina bifida. 11. Wheelchair bound. 12. History of CANINE SERVICE INSTRUCTOR TRAINER shunt. 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 14. History of self-catheterization. 15. History of hypertension. 16. Euthyroid state. 17. Poorly controlled diabetes type 2. POSTOPERATIVE DIAGNOSES: 1. Follicular thyroid cancer. 2. History of dysphagia secondary to thyroid compression. 3. Dyspnea from thyroid compression. 4. Morbid obesity due to excess calories. 5. Body mass index of 44.8. 6. Diabetes type 2, insulin-dependent, poorly controlled. 7. Right inferior thyroid nodule, 4 cm. 8. Gastroesophageal reflux disease. 9. Chronic migraines. 10. Spina bifida. 11. Wheelchair bound. 12. History of CANINE SERVICE INSTRUCTOR TRAINER shunt. 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 14. History of self-catheterization. 15. History of hypertension. 16. Euthyroid state. 17. Poorly controlled diabetes type 2. OPERATION: Total thyroidectomy with isthmusectomy and intraoperative NIM nerve monitoring. ANESTHESIA: General with local anesthetic. ESTIMATED BLOOD LOSS: 50 mL. SPECIMENS REMOVED: Total thyroidectomy, right anterior inferior suture along right thyroid nodule. COMPLICATIONS: None. SPECIAL EQUIPMENT: intraoperative NIM nerve monitoring for identification of superior and recurrent laryngeal nerves. OPERATIVE FINDINGS: 1. No palpable adenopathy along the bilateral neck. 2. Large 3.5 to 4 cm right inferior lobe thyroid nodule palpated. 3. Complexity of case increased secondary to patient's BMI of 44.8. 4. Neurostimulator used throughout the case confirming identification of recurrent laryngeal nerve along both sides and free from harm during the procedure. 5. Parathyroid glands identified and spared during procedure. 6. Neck incision of 8 cm secondary to short and very thick neck with limited mobility. INDICATIONS: The patient is a 36-year-old female who presents with FNA proven follicular thyroid cancer. She reports that her thyroid gland has grown in moderate size which is causing both dysphagia including dyspnea from thyroid compression. Total thyroidectomy was described. Benefits and risks, including bleeding, infection, need for further surgery, recurrence, injury to the recurrent laryngeal nerves had been discussed at length. Informed consent was obtained. DESCRIPTION: Patient was brought into the operating room and initially placed in supine position. After general induction, she was repositioned in a beach chair position with the neck slightly hyperextended and stable. A shoulder roll was placed. Neuromuscular stimulator was placed along the patient's skin. The neck, chin, chest and bilateral shoulders were prepped and draped in standard sterile fashion. Prior to incision, a timeout protocol was confirmed with the surgical team regarding the patient's name including procedure to be performed. Preoperative medications was also dispensed. The patient had a moderate size short and thick neck whereby the skin crease was identified approximately 2 fingerbreadths above the sternal notch in appearance. The skin was localized using anesthetic. Transverse incision was made using a #15 blade. The incision was deepened down through the platysma using a needlepoint electro- Bovie cautery. Flaps were raised along the infra-platysmal plane and was developed cephalad above the thyroid cartridge laterally to the sternocleidomastoid muscles and inferiorly to the sternal notch. The right thyroid gland was of a moderate sized whereby the sternohyoid, sternothyroid and omohyoid muscles were identified. The cervical fascia was divided along the midline. The strap muscles were retracted laterally. The right thyroid was exposed. Next, the right thyroid gland was gently displaced toward the midline and the middle thyroid vein was identified and tied using 2-0 silk and divided. The lobe was then retracted inferiorly and medially to expose the superior thyroid artery and vein. The superior thyroid artery and vein was skeletonized and tied using 2-0 silk and divided onto the gland to avoid injury to the superior laryngeal nerve. The right lobe was then retracted medially and the recurrent laryngeal nerve was identified in the tracheoesophageal groove. Neuromuscular stimulator was used also to confirm its location. Next, the gland was gently mobilized away from the nerve which had been protected during the dissection. The inferior thyroid artery and vein were then ligated with 2-0 silk and divided. A hand held LigaSure was used to divide accessory vessels. The posterior and inferior parathyroid glands were identified and dissected free from the thyroid gland. The isthmus was dissected off the thyroid cartilage. Throughout the neck, no palpable lymph nodes were found throughout the cervical chain. In a similar fashion, the left strap muscles were retracted laterally. The gland was reflected medially in an inferior approach to identify the superior pole. The middle thyroid vein was identified and divided using 2-0 silk. The superior thyroid artery and vein were also skeletonized and tied using 2-0 silk and divided onto the gland again to avoid injury to the recurrent laryngeal nerve. As the lobe was retracted medially the recurrent laryngeal nerve was also identified along the tracheoesophageal groove and confirmed using a neuromuscular stimulation. The thyroid gland was then removed from the trachea. Hemostasis had been checked with Fibrillar and hemostatic agents. The specimen was marked with 2-0 silk along the right inferior thyroid nodule. A 1/4-inch Marian drain was sutured into the space using 2-0 nylon for the skin. The cervical fascia was reapproximated using 3-0 Vicryl in a running fashion. The platysma was also reapproximated using running 3-0 Vicryl stitches. The skin was closed using 4-0 Monocryl in a running subcuticular fashion. Dermabond was placed laterally as to avoid incorporating the [place] drain. Optifoam dressing was placed. At the end of the procedure, needle, sponge, and instrument count had been verified correct by the surgical pathologist. Please note that prior to closure of the wound, the neck was carefully explored whereby no findings of pathological lymph nodes were found. The patient was taken to the postanesthesia care unit in stable condition. The patient upon awaking was able to phonate and speak without hoarseness of her voice and had maintained her airway.
== END 2017-04-18 21:13 | disposition home or self-care (01) ==
LOC: OR 11:23 → 6PED 17:00 → 3SUR 17:28 → OR 04-17 06:47 → 3SUR 04-17 06:47
PROVIDERS: ADMIT Surgery Plastic and Reconstructive Surgery; ATTEND Surgery Plastic and Reconstructive Surgery
DX: C73 Malignant neoplasm of thyroid gland (principal); K21.9 Gastro-esophageal reflux disease without esophagitis; E11.65 Type 2 diabetes mellitus with hyperglycemia; Z99.3 Dependence on wheelchair; Z98.2 Presence of cerebrospinal fluid drainage device; Q05.9 Spina bifida, unspecified; E66.01 Morbid (severe) obesity due to excess calories; Z68.41 Body mass index [BMI] 40.0-44.9, adult; I10 Essential (primary) hypertension; Z79.4 Long term (current) use of insulin; Z79.84 Long term (current) use of oral hypoglycemic drugs; Z79.899 Other long term (current) drug therapy; Z88.8 Allergy status to other drugs, medicaments and biological substances; G43.909 Migraine, unspecified, not intractable, without status migrainosus; I82.0 Budd-Chiari syndrome; F43.10 Post-traumatic stress disorder, unspecified; F31.9 Bipolar disorder, unspecified; K59.09 Other constipation; R33.9 Retention of urine, unspecified; K44.9 Diaphragmatic hernia without obstruction or gangrene; E20.9 Hypoparathyroidism, unspecified; R20.0 Anesthesia of skin; Z80.8 Family history of malignant neoplasm of other organs or systems; F17.200 Nicotine dependence, unspecified, uncomplicated
CPT/HCPCS: 60240; 93005; 81025; 82652; 80053; 80048; 84443; 82310 ×2; 83036; 83735 ×3; 84100 ×2; 85025 ×2; 88307; 84703; 83970; G0378 ×2; J2250; J1100; J0690 ×2; J2405; J2001; J3010; J1650 ×3; J1170 ×2; J3475 ×3; J0610 ×2; J2704

== ENCOUNTER 2023-07-18 19:12 | Emergency (ER) | payer OTHER ==
[2023-07-18 19:45] VITALS: RESP 18; TEMP 97.7
--- NOTE | 2023-07-18 20:57 | CT ---
EXAMINATION TYPE: CT brain cspine wo con CT DLP: 1592.3 mGycm, Automated exposure control for dose reduction was used. DATE OF EXAM: 07/18/2023 8:21 PM COMPARISON: None. CLINICAL INDICATION:Female, 43 years old with history of fall injury; Fall. Poor historian. TECHNIQUE: Brain: Multiple axial CT images of the brain were obtained without IV contrast. Cspine: Axial CT images from the skull base to the inferior aspect of T2 we obtained without intraven ous contrast. Coronal and sagittal reformatted images were also reviewed. FINDINGS: Brain: Extra-axial spaces: No abnormal extra-axial fluid collections. Ventricular system: Right lateral posterior approach ventriculostomy tubing hardware appears intact. Tubing terminates in the right lateral ventricle. No evidence for dilation of the ventricular system. Cerebral parenchyma: No acute intraparenchymal hemorrhage or mass effect. The santamaria-white junction is well differentiated. Cerebellum: Unremarkable. Mass effect: No evidence of midline shift. Intracranial vasculature: unremarkable Soft tissues: Normal. Calvarium/osseous structures: No depressed skull fracture. Paranasal sinuses and mastoid air cells: Mucosal thickening throughout the right maxillary sinus. Visualized orbits: Orbital contents are intact. Cervical spine: Fracture: None. Osseous structures: Mild degeneration changes throughout the spine with osteophyte formation. Vertebral alignment: Within normal limits. Spinal canal/Neural Foramina: Disc osteophyte complexes at C4-C7. With at least mild spinal canal joann nosis. No evidence for significant neural foraminal stenosis. Neck soft tissues: Prevertebral soft tissues are within normal limits. Ventriculoperitoneal abandoned tubing as well as intact tubing noted in the right neck. IMPRESSION: 1. No acute intracranial process. 2. Ventriculoperitoneal shunt tubing appears intact. Additional abandoned tubing noted. No evidence for dilated ventricular system. 3. No evidence of cervical spine fracture. 4. Mild multilevel degenerative disc disease.
[2023-07-18 21:22] LABS: Basophils % (A) 0 %; Eosinophils # (A) 0.1 k/uL (0-0.7); Eosinophils % (A) 1 %; HCT 36.9 % (34.0-46.0); HGB 11.8 gm/dL (11.4-16.0); Hypochromasia Slight; Lymphocytes # (A) 2.2 k/uL (1.0-4.8); Lymphocytes % (A) 22 %; MCH 27.3 pg (25.0-35.0); MCHC 31.9 g/dL (31.0-37.0); MCV 85.6 fL (80.0-100.0); Mean Platelet Volume 9.2; Monocytes # (A) 0.8 k/uL (0-1.0); Monocytes % (A) 8 %; Neutrophils # (A) 6.8 k/uL (1.3-7.7); Neutrophils % (A) 68 %; Platelet Count 416 k/uL (150-450); RBC 4.32 m/uL (3.80-5.40); RDW 13.6 % (11.5-15.5)
[2023-07-18 21:51] LABS: ALT 16 U/L (4-34); African American GFR (CKD) >90 (>60 ml/min/1.73 sqM); Anion Gap 13 mmol/L; Blood Urea Nitrogen 8 mg/dL (7-17); Calcium 8.1 mg/dL (8.4-10.2); Carbon Dioxide 16 mmol/L (22-30); Chloride 106 mmol/L (98-107); Glucose 262 mg/dL (74-99); Non-African American GFR(CKD) >90 (>60 ml/min/1.73 sqM); Sodium 135 mmol/L (137-145)
[2023-07-18 22:03] LABS: Potassium 4.9 mmol/L (3.5-5.1)
[2023-07-18 22:04] LABS: AST 34 U/L (14-36); Albumin 3.8 g/dL (3.5-5.0); Alkaline Phosphatase 68 U/L (38-126); Total Bilirubin 0.8 mg/dL (0.2-1.3)
[2023-07-18] MEDS ORDERED: INSULIN REGULAR 100 UNIT/ML VIAL (IV) SQ STA (22:42)
[2023-07-18] MEDS ORDERED: HYDROmorphone 0.5 MG/0.5 ML SYRINGE IVP STA (23:23)
--- NOTE | 2023-07-18 23:59 | ED ---
General Adult HPI - General Chief complaint: Chest Pain Stated complaint: fall Time Seen by Provider: 07/18/23 19:29 Source: patient Mode of arrival: EMS Limitations: no limitations - History of Present Illness Initial comments: This patient is a 43-year-old woman with history of spina bifida. The patient states that she had been at home, sitting in her wheelchair when she believes she must have fallen forward out of the wheelchair, hit her head. Now she is complaining of headache and neck pain. She denies other injury related to the fall. Patient denies new neurologic deficit. -: minutes(s) Location: head, neck Consistency: constant Improves with: none Worsens with: none Associated Symptoms: denies other symptoms - Related Data Home Medications Medication Instructions Recorded Confirmed Insulin Glargine [Lantus Vial] 70 unit SQ HS 12/14/14 04/17/17 Gabapentin [Neurontin] 300 mg PO BID 01/06/17 04/17/17 Topiramate [Topamax] 25 mg PO BID 01/06/17 04/17/17 Metoclopramide HCl [Reglan] 10 mg PO TID 04/10/17 04/17/17 Omeprazole [PriLOSEC] 20 mg PO AC-[id number] 04/10/17 04/17/17 metFORMIN HCL 1,000 mg PO BID 04/17/17 04/17/17 Previous Rx's Medication Instructions Recorded Calcium Citrate/Vitamin D3 2 each PO TID #180 tablet 04/18/17 [Calcitrate + Vit D Caplet] Hydrocodone/Acetaminophen [[place] 1 - 2 each PO Q6HR PRN #20 tab 04/18/17 5-325] Levothyroxine Sodium [Synthroid] 50 mcg PO DAILY #30 tab 04/18/17 Magnesium Oxide [Magox 400] 400 mg PO BID #30 tablet 04/18/17 calcitrioL [Calcitriol] 0.25 mcg PO DAILY #30 capsule 04/18/17 Allergies Allergy/AdvReac Type Severity Reaction Status Date / Time niacin Allergy Rash/Hives Verified 04/10/17 09:04 tetrahydrozoline HCl Allergy Rash/Hives Verified 04/10/17 09:04 [From Visine] Review of Systems ROS Statement: Those systems with pertinent positive or pertinent negative responses have been documented in the HPI. ROS Other: All systems not noted in ROS Statement are negative. Constitutional: Denies: fever, weakness Eyes: Denies: vision change Respiratory: Denies: cough, dyspnea Cardiovascular: Denies: chest pain, palpitations Gastrointestinal: Denies: abdominal pain, nausea, vomiting Musculoskeletal: Denies: back pain Skin: Denies: rash Neurological: Reports: headache. Denies: weakness, numbness, paresthesias Past Medical History Past Medical History: Cancer, Diabetes Mellitus, GERD/Reflux, Hypertension, Skin Disorder, Thyroid Disorder Additional Past Medical History / Comment(s): SPINA BIFIDA-HAS A MOLD CHIPPER SHUNT, chiari malformation, migraines, hx heart murmer, hiatal hernia, chronic constipation, "brown spots on skin", thyroid cancer, self catheterization, hx impacted kidney stone, wheelchair-limited wt bearing on rt side History of Any Multi-Drug Resistant Organisms: MRSA Date of last positivie culture/infection: 03/09/15 MDRO Source:: LEG Past Surgical History: Section, Cholecystectomy, Orthopedic Surgery, Ventriculoperitoneal Shunt Additional Past Surgical History / Comment(s): RIGHT ANKLE fusion, RIGHT KIDNEY REMOVED, SPINE CLOSURE surgery form spina bifida, tendon release lin ankles and behind rt knee, Rt ankle fusion. Thyroidectomy Past Anesthesia/Blood Transfusion Reactions: Previous Problems w/ Anesthesia Additional Past Anesthesia/Blood Transfusion Reaction / Comment(s): slow to wake up Past Psychological History: Anxiety, Bipolar, Depression, PTSD Past Alcohol Use History: Rare Past Drug Use History: Marijuana - Past Family History Father History Unknown: Yes Mother Family Medical History: No Reported History General Exam Limitations: no limitations General appearance: alert, in no apparent distress Head exam: Present: atraumatic, normocephalic Eye exam: Present: normal appearance, PERRL, EOMI. Absent: scleral icterus, conjunctival injection, nystagmus Neck exam: Present: normal inspection, tenderness Respiratory exam: Present: normal lung sounds bilaterally. Absent: respiratory distress, wheezes, rales, rhonchi, stridor, accessory muscle use Cardiovascular Exam: Present: regular rate, normal rhythm, normal heart sounds. Absent: systolic murmur, diastolic murmur, rubs, gallop GI/Abdominal exam: Present: soft. Absent: distended, tenderness, guarding, rebound, rigid, mass Extremities exam: Present: normal inspection, normal capillary refill. Absent: pedal edema, calf tenderness Back exam: Present: normal inspection Neurological exam: Present: alert, oriented X3, CN II-XII intact. Absent: motor sensory deficit Skin exam: Present: warm, dry, intact, normal color. Absent: rash Course Vital Signs 07/18/23 07/18/23 07/18/23 19:17 19:24 19:33 Temperature 97.7 F 97.7 F Pulse Rate 99 96 97 Respiratory 18 14 18 Rate Blood Pressure 122/85 122/85 O2 Sat by Pulse 100 100 Oximetry 07/18/23 07/19/23 20:00 02:57 Temperature Pulse Rate 82 Respiratory 18 Rate Blood Pressure 122/85 110/68 O2 Sat by Pulse 99 Oximetry Medical Decision Making - Medical Decision Making The patient had computed tomography scan of the brain and C-spine which I interpreted as negative for acute bony injury or intracranial hemorrhage. Was pt. sent in by a medical professional or institution (, PA, TEACHER EDUCATION DIRECTOR, urgent care, hospital, or halfway...) When possible be specific @ -[No] Did you speak to anyone other than the patient for history (EMS, parent, family, police, friend...)? What history was obtained from this source @ -[No] Did you review nursing and triage notes (agree or disagree)? Why? @ -[I reviewed and agree with nursing and triage notes] Were old charts reviewed (outside hosp., previous admission, EMS record, old EKG, old radiological studies, urgent care reports/EKG's, halfway records)? Report findings @ -[No old charts were reviewed] Differential Diagnosis (chest pain, altered mental status, abdominal pain women, abdominal pain men, vaginal bleeding, weakness, fever, dyspnea, syncope, headache, dizziness, GI bleed, back pain, seizure, CVA, palpatations, mental health, musculoskeletal)? @ -[Differential Musculoskeletal Muscular strain, contusion, ligament sprain, fracture, arthritis, septic arthritis, bursitis, cellulitis, muscle spasm, nerve compression, DVT, arterial occlusion, herpes zoster, electrolyte abnormality, tumor.... This is not meant to be in all inclusive list EKG interpreted by me (3pts min.). @ -[As above] X-rays interpreted by me (1pt min.). @ -[None done] CT interpreted by me (1pt min.). @ -[None done] U/S interpreted by me (1pt. min.). @ -[None done] What testing was considered but not performed or refused? (CT, X-rays, U/S, labs)? Why? @ -[None] What meds were considered but not given or refused? Why? @ -[None] Did you discuss the management of the patient with other professionals (professionals i.e. DrDesiree, PA, TEACHER EDUCATION DIRECTOR, lab, RT, psych nurse, social media job titles, proof operator, teacher, chief analytics officer, patient case manager)? Give summary @ -[No] Was smoking cessation discussed for >3mins.? @ -[No] Was critical care preformed (if so, how long)? @ -[No] Were there social determinants of health that impacted care today? How? (Homelessness, low income, unemployed, alcoholism, drug addiction, transportation, low edu. Level, literacy, decrease access to med. care, prison, rehab)? @ -[No] Was there de-escalation of care discussed even if they declined (Discuss DNR or withdrawal of care, Hospice)? DNR status @ -[No] What co-morbidities impacted this encounter? (DM, HTN, Smoking, COPD, CAD, Cancer, CVA, ARF, Chemo, Hep., AIDS, mental health diagnosis, sleep apnea, morbid obesity)? @ -[None] Was patient admitted / discharged? Hospital course, mention meds given and route, prescriptions, significant lab abnormalities, going to OR and other pertinent info. @ -[Patient is 43-year-old woman here to have evaluation after she fell from her wheelchair striking her head resulting in headache and neck pain. She did have significant bony tenderness, therefore CT ordered. The patient's CT is negative, she is feeling better after medication. We discussed appropriate further care and follow-up as well as return parameters. Undiagnosed new problem with uncertain prognosis? @ -[No] Drug Therapy requiring intensive monitoring for toxicity (Heparin, Nitro, Insulin, Cardizem)? @ -[No] Were any procedures done? @ -[No] Diagnosis/symptom? @ -[Fall with minor head injury Acute cervical strain Hyperglycemia Acute urinary tract infection Acute, or Chronic, or Acute on Chronic? @ -[Acute Uncomplicated (without systemic symptoms) or Complicated (systemic symptoms)? @ -[Uncomplicated Side effects of treatment? @ -[No] Exacerbation, Progression, or Severe Exacerbation? @ -[No] Poses a threat to life or bodily function? How? (Chest pain, [place], [place], pneumonia, PE, COPD, DKA, ARF, appy, cholecystitis, CVA, Diverticulitis, Homicidal, Suicidal, threat to staff... and all critical care pts) @ -[No] - Lab Data Result diagrams: 07/18/23 20:18 07/18/23 21:28 Lab Results 07/18/23 07/18/23 07/18/23 Range/Units 20:18 20:18 21:28 WBC 10.0 (3.8-10.6) k/uL RBC 4.32 (3.80-5.40) m/uL Hgb 11.8 (11.4-16.0) gm/dL Hct 36.9 (34.0-46.0) % MCV 85.6 (80.0-100.0) fL MCH 27.3 (25.0-35.0) pg MCHC 31.9 (31.0-37.0) g/dL RDW 13.6 (11.5-15.5) % Plt Count 416 (150-450) k/uL MPV 9.2 Neutrophils % 68 % Lymphocytes % 22 % Monocytes % 8 % Eosinophils % 1 % Basophils % 0 % Neutrophils # 6.8 (1.3-7.7) k/uL Lymphocytes # 2.2 (1.0-4.8) k/uL Monocytes # 0.8 (0-1.0) k/uL Eosinophils # 0.1 (0-0.7) k/uL Basophils # 0.0 (0-0.2) k/uL Hypochromasia Slight Sodium 135 L (137-145) mmol/L Potassium 4.9 (3.5-5.1) mmol/L Chloride 106 (98-107) mmol/L Carbon Dioxide 16 L (22-30) mmol/L Anion Gap 13 mmol/L BUN 8 (7-17) mg/dL Creatinine 0.42 L (0.52-1.04) mg/dL Est GFR (CKD-EPI)AfAm >90 (>60 ml/min/1.73 sqM) Est GFR (CKD-EPI)NonAf >90 (>60 ml/min/1.73 sqM) Glucose 262 H (74-99) mg/dL Plasma Lactic Acid [place] 1.4 (0.7-2.0) mmol/L Calcium 8.1 L (8.4-10.2) mg/dL Total Bilirubin 0.8 (0.2-1.3) mg/dL AST 34 (14-36) U/L ALT 16 (4-34) U/L Alkaline Phosphatase 68 (38-126) U/L Total Protein 8.0 (6.3-8.2) g/dL Albumin 3.8 (3.5-5.0) g/dL Urine Color Urine Appearance (Clear) Urine pH (5.0-8.0) Ur Specific [place] (1.001-1.035) Urine Protein (Negative) Urine Glucose (UA) (Negative) Urine Ketones (Negative) Urine Blood (Negative) Urine Nitrite (Negative) Urine Bilirubin (Negative) Urine Urobilinogen (<2.0) mg/dL Ur Leukocyte Esterase (Negative) Urine RBC (0-5) /hpf Urine WBC (0-5) /hpf Ur Squamous Epith Cells (0-4) /hpf Amorphous Sediment (None) /hpf Urine Bacteria (None) /hpf Hyaline Casts (0-2) /lpf Urine Mucus (None) /hpf 07/19/23 Range/Units 02:26 WBC (3.8-10.6) k/uL RBC (3.80-5.40) m/uL Hgb (11.4-16.0) gm/dL Hct (34.0-46.0) % MCV (80.0-100.0) fL MCH (25.0-35.0) pg MCHC (31.0-37.0) g/dL RDW (11.5-15.5) % Plt Count (150-450) k/uL MPV Neutrophils % % Lymphocytes % % Monocytes % % Eosinophils % % Basophils % % Neutrophils # (1.3-7.7) k/uL Lymphocytes # (1.0-4.8) k/uL Monocytes # (0-1.0) k/uL Eosinophils # (0-0.7) k/uL Basophils # (0-0.2) k/uL Hypochromasia Sodium (137-145) mmol/L Potassium (3.5-5.1) mmol/L Chloride (98-107) mmol/L Carbon Dioxide (22-30) mmol/L Anion Gap mmol/L BUN (7-17) mg/dL Creatinine (0.52-1.04) mg/dL Est GFR (CKD-EPI)AfAm (>60 ml/min/1.73 sqM) Est GFR (CKD-EPI)NonAf (>60 ml/min/1.73 sqM) Glucose (74-99) mg/dL Plasma Lactic Acid [place] (0.7-2.0) mmol/L Calcium (8.4-10.2) mg/dL Total Bilirubin (0.2-1.3) mg/dL AST (14-36) U/L ALT (4-34) U/L Alkaline Phosphatase (38-126) U/L Total Protein (6.3-8.2) g/dL Albumin (3.5-5.0) g/dL Urine Color Colorless Urine Appearance Turbid H (Clear) Urine pH 5.0 (5.0-8.0) Ur Specific [place] 1.029 (1.001-1.035) Urine Protein Trace H (Negative) Urine Glucose (UA) 4+ H (Negative) Urine Ketones Negative (Negative) Urine Blood Negative (Negative) Urine Nitrite Negative (Negative) Urine Bilirubin Negative (Negative) Urine Urobilinogen <2.0 (<2.0) mg/dL Ur Leukocyte Esterase Large H (Negative) Urine RBC 1 (0-5) /hpf Urine WBC 70 H (0-5) /hpf Ur Squamous Epith Cells 4 (0-4) /hpf Amorphous Sediment Rare H (None) /hpf Urine Bacteria Many H (None) /hpf Hyaline Casts 20 H (0-2) /lpf Urine Mucus Rare H (None) /hpf Disposition Clinical Impression: Fall, Cervical strain Disposition: HOME SELF-CARE Condition: Good Instructions (If sedation given, give patient instructions): Cervical Strain (DC) Is patient prescribed a controlled substance at d/c from ED?: No Referrals: Amauri Medrano MD [Primary Care Provider] - 1-2 days
[2023-07-19] MEDS ORDERED: SODIUM CHLORIDE 0.9% 500 ML 500 ML IV STA (00:04)
[2023-07-19 03:17] VITALS: BP 110/68; PULSE 82
[2023-07-19 03:26] LABS: Amorphous Sediment,Urine Rare /hpf; Appearance,Urine Turbid (Clear); Bacteria,Urine Many /hpf; Bilirubin,Urine Negative (Negative); Blood,Urine Negative (Negative); Color,Urine Colorless; Glucose,Urine (UA) 4+ (Negative); Hyaline Casts,Urine 20 /lpf (0-2); Ketones,Urine Negative (Negative); Leukocyte Esterase,Urine Large (Negative); Mucus,Urine Rare /hpf; Nitrite,Urine Negative (Negative); Protein,Urine Trace (Negative); RBC,Urine 1 /hpf (0-5); Specific Gravity,Urine 1.029 (1.001-1.035); Squamous Epithelial Cell,Urine 4 /hpf (0-4); Urobilinogen,Urine <2.0 mg/dL (<2.0); WBC,Urine 70 /hpf (0-5)
== END 2023-07-19 03:03 | disposition home or self-care (01) ==
LOC: EC 19:12
DX: S16.1XXA Strain of muscle, fascia and tendon at neck level, initial encounter (principal); I25.2 Old myocardial infarction; E11.9 Type 2 diabetes mellitus without complications; I10 Essential (primary) hypertension; F12.90 Cannabis use, unspecified, uncomplicated; Z86.59 Personal history of other mental and behavioral disorders; Z79.84 Long term (current) use of oral hypoglycemic drugs; Z79.4 Long term (current) use of insulin; Z79.899 Other long term (current) drug therapy; Z88.8 Allergy status to other drugs, medicaments and biological substances; W18.09XA Striking against other object with subsequent fall, initial encounter; Y92.009 Unspecified place in unspecified non-institutional (private) residence as the place of occurrence of the external cause
CPT/HCPCS: 99285; 96374; 36415; 93005; 80053; 83605; 85025; 81001; 72125; 70450; J1170

== ENCOUNTER 2024-07-02 22:21 | Emergency (ER) | payer OTHER ==
[2024-07-02 22:29] VITALS: RESP 18
--- NOTE | 2024-07-02 23:05 | ED ---
SOB HPI - General Chief Complaint: Shortness of Breath Stated Complaint: Chest pain Time Seen by Provider: 07/02/24 22:40 Source: patient Mode of arrival: EMS - History of Present Illness Initial Comments: Is a 44-year-old woman who presents to have evaluation of a constellation of symptoms that have been going on intermittently since 11 in the morning. The patient states that she felt like her heart was racing and that she was intermittently short of breath. She states she has had anxiety similar to this so she did not immediately seek attention. She states that this evening she was with her friend and her heart rate did increase and her friend checked her blood pressure and it was elevated. They called EMS to see if EMS would verify that her blood pressure was elevated. EMS arrived and they reportedly checked the patient's pulse oximetry and it was 85. On arrival it appears that EMS had checked the pulse oximetry on a digit with an artificial nail, and when we checked the pulse oximetry on finger that does not have artificial nail it is normal. The patient did have chest tightness. She states that all the symptoms have been previously present when she has anxiety. No fever. No productive cough. No ewa chest pain. No leg pain or swelling. No change in urination or bowel movement MD Complaint: shortness of breath Onset/Timin -: hour(s) Severity scale (1-10): 0 Quality: other (Tightness) Consistency: intermittent, now resolved Improves With: nothing Worsens With: nothing Associated Symptoms: palpitations Treatments Prior to Arrival: none - Related Data Home Medications Medication Instructions Recorded Confirmed Insulin Glargine [Lantus Vial] 70 unit SQ HS 12/14/14 04/17/17 Gabapentin [Neurontin] 300 mg PO BID 01/06/17 04/17/17 Topiramate [Topamax] 25 mg PO BID 01/06/17 04/17/17 Metoclopramide HCl [Reglan] 10 mg PO TID 04/10/17 04/17/17 Omeprazole [PriLOSEC] 20 mg PO [id number] 04/10/17 04/17/17 metFORMIN HCL 1,000 mg PO BID 04/17/17 04/17/17 Previous Rx's Medication Instructions Recorded Calcium Citrate/Vitamin D3 2 each PO TID #180 tablet 04/18/17 [Calcitrate + Vit D Caplet] Hydrocodone/Acetaminophen [[place]one [place] 1 - 2 each PO Q6HR PRN #20 tab 04/18/17 5-325] Levothyroxine Sodium [Synthroid] 50 mcg PO DAILY #30 tab 04/18/17 Magnesium Oxide [Magox 400] 400 mg PO BID #30 tablet 04/18/17 calcitrioL 0.25 mcg PO DAILY #30 capsule 04/18/17 Allergies Allergy/AdvReac Type Severity Reaction Status Date / Time niacin Allergy Rash/Hives Verified 07/02/24 22:28 tetrahydrozoline HCl Allergy Rash/Hives Verified 07/02/24 22:28 [From Visine] Review of Systems ROS Statement: Those systems with pertinent positive or pertinent negative responses have been documented in the HPI. ROS Other: All systems not noted in ROS Statement are negative. Constitutional: Denies: fever, chills, weakness Respiratory: Reports: as per HPI, dyspnea. Denies: cough, wheezes, hemoptysis Cardiovascular: Reports: as per HPI, palpitations. Denies: orthopnea, edema, syncope Gastrointestinal: Denies: abdominal pain, vomiting, diarrhea, melena, hematochezia Genitourinary: Denies: dysuria, hematuria Musculoskeletal: Denies: back pain Skin: Denies: rash Neurological: Denies: headache, weakness Psychiatric: Reports: anxiety Past Medical History Past Medical History: Cancer, Diabetes Mellitus, GERD/Reflux, Hypertension, Skin Disorder, Thyroid Disorder Additional Past Medical History / Comment(s): SPINA BIFIDA-HAS A DUST HANDLER SHUNT, chiari malformation, migraines, hx heart murmer, hiatal hernia, chronic const ipation, "brown spots on skin", thyroid cancer, self catheterization, hx impacted kidney stone, wheelchair-limited wt bearing on rt side History of Any Multi-Drug Resistant Organisms: MRSA Date of last positivie culture/infection: 03/09/15 MDRO Source:: LEG Past Surgical History: Section, Cholecystectomy, Orthopedic Surgery, Ventriculoperitoneal Shunt Additional Past Surgical History / Comment(s): RIGHT ANKLE fusion, RIGHT KIDNEY REMOVED, SPINE CLOSURE surgery form spina bifida, tendon release lin ankles and behind rt knee, Rt ankle fusion. Thyroidectomy Past Anesthesia/Blood Transfusion Reactions: Previous Problems w/ Anesthesia Additional Past Anesthesia/Blood Transfusion Reaction / Comment(s): slow to wake up Past Psychological History: Anxiety, Bipolar, Depression, PTSD Past Alcohol Use History: Rare Past Drug Use History: Marijuana - Past Family History Father History Unknown: Yes Mother Family Medical History: No Reported History General Exam General appearance: alert, in no apparent distress Head exam: Present: atraumatic, normocephalic Eye exam: Present: normal appearance. Absent: scleral icterus, conjunctival injection Neck exam: Present: normal inspection Respiratory exam: Present: normal lung sounds bilaterally. Absent: respiratory distress, wheezes, rales, rhonchi, stridor, accessory muscle use Cardiovascular Exam: Present: regular rate, normal rhythm, normal heart sounds. Absent: systolic murmur, diastolic murmur, rubs, gallop GI/Abdominal exam: Present: soft. Absent: distended, tenderness, guarding, rebound, rigid Extremities exam: Present: normal inspection, normal capillary refill. Absent: pedal edema, calf tenderness Back exam: Present: normal inspection Neurological exam: Present: alert Skin exam: Present: warm, dry, intact, normal color. Absent: rash Course Vital Signs 07/02/24 07/02/24 07/03/24 22:21 22:31 01:30 Temperature 98.5 F Pulse Rate 94 93 Respiratory 18 18 18 Rate Blood Pressure 153/95 123/80 O2 Sat by Pulse 100 100 Oximetry 07/03/24 02:04 Temperature 98.3 F Pulse Rate 82 Respiratory 18 Rate Blood Pressure 128/83 O2 Sat by Pulse 100 Oximetry Medical Decision Making - Medical Decision Making The patient had chest x-ray that I interpreted as negative for acute infiltrate, pneumothorax, congestive heart failure Was pt. sent in by a medical professional or institution (DOMO De La Cruz, ROBOTIC MAINTENANCE TECHNICIAN, urgent care, hospital, or snf...) When possible be specific @ -[No] Did you speak to anyone other than the patient for history (EMS, parent, family, police, friend...)? What history was obtained from this source @ -[No] Did you review nursing and triage notes (agree or disagree)? Why? @ -[I reviewed and agree with nursing and triage notes] Were old charts reviewed (outside hosp., previous admission, EMS record, old EKG, old radiological studies, urgent care reports/EKG's, snf records)? Report findings @ -[No old charts were reviewed] Differential Diagnosis (chest pain, altered mental status, abdominal pain women, abdominal pain men, vaginal bleeding, weakness, fever, dyspnea, syncope, headache, dizziness, GI bleed, back pain, seizure, CVA, palpatations, mental health, musculoskeletal)? @ -[Differential Palpitations Ventricular arrhythmias, atrial arrhythmias, myocardial infarction, anemia, thyrotoxicosis, electrolyte imbalance, hypokalemia, pulmonary embolism, pulmonary disease, drugs, alcohol, anxiety, stress.... This is not meant to be an all-inclusive list. EKG interpreted by me (3pts min.). @ -[I interpreted as above] X-rays interpreted by me (1pt min.). @ -[I interpreted as above CT interpreted by me (1pt min.). @ -[None done] U/S interpreted by me (1pt. min.). @ -[None done] What testing was considered but not performed or refused? (CT, X-rays, U/S, labs)? Why? @ -[None] What meds were considered but not given or refused? Why? @ -[None] Did you discuss the management of the patient with other professionals (professionals i.e. , PA, ROBOTIC MAINTENANCE TECHNICIAN, lab, RT, psych nurse, social work associate, aircraft maintenance engineer, teacher, correction officer city or county jail, counseling case manager)? Give summary @ -[No] Was smoking cessation discussed for >3mins.? @ -[No] Was critical care preformed (if so, how long)? @ -[No] Were there social determinants of health that impacted care today? How? (Homelessness, low income, unemployed, alcoholism, drug addiction, transportation, low edu. Level, literacy, decrease access to med. care, fci, rehab)? @ -[No] Was there de-escalation of care discussed even if they declined (Discuss DNR or withdrawal of care, Hospice)? DNR status @ -[No] What co-morbidities impacted this encounter? (DM, HTN, Smoking, COPD, CAD, Cancer, CVA, ARF, Chemo, Hep., AIDS, mental health diagnosis, sleep apnea, morbid obesity)? @ -[None] Was patient admitted / discharged? Hospital course, mention meds given and route, prescriptions, significant lab abnormalities, going to OR and other pertinent info. @ -[hospital course] Undiagnosed new problem with uncertain prognosis? @ -[No] Drug Therapy requiring intensive monitoring for toxicity (Heparin, Nitro, Insulin, Cardizem)? @ -[No] Were any procedures done? @ -[No] Diagnosis/symptom? @ -[Acute palpitations Hyperglycemia and diabetic patient Acute, or Chronic, or Acute on Chronic? @ -[Acute Uncomplicated (without systemic symptoms) or Complicated (systemic symptoms)? @ -[Uncomplicated Side effects of treatment? @ -[No] Exacerbation, Progression, or Severe Exacerbation? @ -[No] Poses a threat to life or bodily function? How? (Chest pain, [place], [place], pneumonia, PE, COPD, DKA, ARF, appy, cholecystitis, CVA, Diverticulitis, Homicidal, Suicidal, threat to staff... and all critical care pts) @ -[No] - Lab Data Result diagrams: 07/02/24 22:55 07/02/24 22:55 Lab Results 07/02/24 07/02/24 07/02/24 Range/Units 22:55 22:55 22:55 WBC 8.7 (3.8-10.6) k/uL RBC 4.80 (3.80-5.40) m/uL Hgb 12.7 (11.4-16.0) gm/dL Hct 40.6 (34.0-46.0) % MCV 84.5 (80.0-100.0) fL MCH 26.5 (25.0-35.0) pg MCHC 31.4 (31.0-37.0) g/dL RDW 14.6 (11.5-15.5) % Plt Count 504 H (150-450) k/uL MPV 7.0 Neutrophils % 61 % Lymphocytes % 28 % Monocytes % 4 % Eosinophils % 4 % Basophils % 1 % Neutrophils # 5.3 (1.3-7.7) k/uL Lymphocytes # 2.4 (1.0-4.8) k/uL Monocytes # 0.3 (0-1.0) k/uL Eosinophils # 0.4 (0-0.7) k/uL Basophils # 0.0 (0-0.2) k/uL Hypochromasia Slight PT 10.7 (10.0-12.5) sec INR 1.0 (<1.2) APTT 23.4 (22.0-30.0) sec Sodium 137 (137-145) mmol/L Potassium 4.8 (3.5-5.1) mmol/L Chloride 102 (98-107) mmol/L Carbon Dioxide 23 (22-30) mmol/L Anion Gap 12 mmol/L BUN 10 (7-17) mg/dL Creatinine 0.54 (0.52-1.04) mg/dL Est GFR (CKD-EPI)AfAm >90 (>60 ml/min/1.73 sqM) Est GFR (CKD-EPI)NonAf >90 (>60 ml/min/1.73 sqM) Glucose 275 H (74-99) mg/dL POC Glucose (mg/dL) (70-110) mg/dL POC Glu Personnel Supervisor ID Plasma Lactic Acid Fermín (0.7-2.0) mmol/L Calcium 9.3 (8.4-10.2) mg/dL Total Bilirubin 0.6 (0.2-1.3) mg/dL AST 28 (14-36) U/L ALT 11 (4-34) U/L Alkaline Phosphatase 87 (38-126) U/L Troponin I (0.000-0.034) ng/mL NT-Pro-B Natriuret Pep 80 pg/mL Total Protein 9.0 H (6.3-8.2) g/dL Albumin 4.5 (3.5-5.0) g/dL Influenza Type A (PCR) (Not Detectd) Influenza Type B (PCR) (Not Detectd) RSV (PCR) (Not Detectd) SARS-CoV-2 (PCR) (Not Detectd) 07/02/24 07/02/24 07/02/24 Range/Units 22:55 22:55 23:04 WBC (3.8-10.6) k/uL RBC (3.80-5.40) m/uL Hgb (11.4-16.0) gm/dL Hct (34.0-46.0) % MCV (80.0-100.0) fL MCH (25.0-35.0) pg MCHC (31.0-37.0) g/dL RDW (11.5-15.5) % Plt Count (150-450) k/uL MPV Neutrophils % % Lymphocytes % % Monocytes % % Eosinophils % % Basophils % % Neutrophils # (1.3-7.7) k/uL Lymphocytes # (1.0-4.8) k/uL Monocytes # (0-1.0) k/uL Eosinophils # (0-0.7) k/uL Basophils # (0-0.2) k/uL Hypochromasia PT (10.0-12.5) sec INR (<1.2) APTT (22.0-30.0) sec Sodium (137-145) mmol/L Potassium (3.5-5.1) mmol/L Chloride (98-107) mmol/L Carbon Dioxide (22-30) mmol/L Anion Gap mmol/L BUN (7-17) mg/dL Creatinine (0.52-1.04) mg/dL Est GFR (CKD-EPI)AfAm (>60 ml/min/1.73 sqM) Est GFR (CKD-EPI)NonAf (>60 ml/min/1.73 sqM) Glucose (74-99) mg/dL POC Glucose (mg/dL) (70-110) mg/dL POC Glu Personnel Supervisor ID Plasma Lactic Acid Fermín 1.2 (0.7-2.0) mmol/L Calcium (8.4-10.2) mg/dL Total Bilirubin (0.2-1.3) mg/dL AST (14-36) U/L ALT (4-34) U/L Alkaline Phosphatase (38-126) U/L Troponin I <0.012 (0.000-0.034) ng/mL NT-Pro-B Natriuret Pep pg/mL Total Protein (6.3-8.2) g/dL Albumin (3.5-5.0) g/dL Influenza Type A (PCR) Not Detected (Not Detectd) Influenza Type B (PCR) Not Detected (Not Detectd) RSV (PCR) Not Detected (Not Detectd) SARS-CoV-2 (PCR) Not Detected (Not Detectd) 07/03/24 Range/Units 00:28 WBC (3.8-10.6) k/uL RBC (3.80-5.40) m/uL Hgb (11.4-16.0) gm/dL Hct (34.0-46.0) % MCV (80.0-100.0) fL MCH (25.0-35.0) pg MCHC (31.0-37.0) g/dL RDW (11.5-15.5) % Plt Count (150-450) k/uL MPV Neutrophils % % Lymphocytes % % Monocytes % % Eosinophils % % Basophils % % Neutrophils # (1.3-7.7) k/uL Lymphocytes # (1.0-4.8) k/uL Monocytes # (0-1.0) k/uL Eosinophils # (0-0.7) k/uL Basophils # (0-0.2) k/uL Hypochromasia PT (10.0-12.5) sec INR (<1.2) APTT (22.0-30.0) sec Sodium (137-145) mmol/L Potassium (3.5-5.1) mmol/L Chloride (98-107) mmol/L Carbon Dioxide (22-30) mmol/L Anion Gap mmol/L BUN (7-17) mg/dL Creatinine (0.52-1.04) mg/dL Est GFR (CKD-EPI)AfAm (>60 ml/min/1.73 sqM) Est GFR (CKD-EPI)NonAf (>60 ml/min/1.73 sqM) Glucose (74-99) mg/dL POC Glucose (mg/dL) 296 H (70-110) mg/dL POC Glu Personnel Supervisor ID Ivan Crocker Plasma Lactic Acid Fermín (0.7-2.0) mmol/L Calcium (8.4-10.2) mg/dL Total Bilirubin (0.2-1.3) mg/dL AST (14-36) U/L ALT (4-34) U/L Alkaline Phosphatase (38-126) U/L Troponin I (0.000-0.034) ng/mL NT-Pro-B Natriuret Pep pg/mL Total Protein (6.3-8.2) g/dL Albumin (3.5-5.0) g/dL Influenza Type A (PCR) (Not Detectd) Influenza Type B (PCR) (Not Detectd) RSV (PCR) (Not Detectd) SARS-CoV-2 (PCR) (Not Detectd) - EKG Data -: EKG Interpreted by Tn EKG shows normal: sinus rhythm, axis (Normal), intervals (Normal), ST-T waves Rate: normal (Rate 89 bpm) Disposition Clinical Impression: Poorly controlled type 2 diabetes mellitus, Palpitations Disposition: HOME SELF-CARE Condition: Good Instructions (If sedation given, give patient instructions): Chest Pain (ED), Heart Palpitations (DC) Is patient prescribed a controlled substance at d/c from ED?: No Referrals: Reynaldo Bonilla MD [REFERRING] - 1-2 days
[2024-07-02 23:30] LABS: Basophils % (A) 1 %; Eosinophils # (A) 0.4 k/uL (0-0.7); Eosinophils % (A) 4 %; HCT 40.6 % (34.0-46.0); HGB 12.7 gm/dL (11.4-16.0); Hypochromasia Slight; Lymphocytes # (A) 2.4 k/uL (1.0-4.8); Lymphocytes % (A) 28 %; MCH 26.5 pg (25.0-35.0); MCHC 31.4 g/dL (31.0-37.0); MCV 84.5 fL (80.0-100.0); Monocytes # (A) 0.3 k/uL (0-1.0); Monocytes % (A) 4 %; Neutrophils # (A) 5.3 k/uL (1.3-7.7); Neutrophils % (A) 61 %; Platelet Count 504 k/uL (150-450); RDW 14.6 % (11.5-15.5); WBC 8.7 k/uL (3.8-10.6)
--- NOTE | 2024-07-02 23:36 | XR ---
EXAMINATION TYPE: XR chest 2V DATE OF EXAM: 07/02/2024 COMPARISON: Chest x-ray June 18, 2015 HISTORY: Difficulty in breathing. TECHNIQUE: Frontal and lateral views of the chest are obtained. FINDINGS: Overlying EKG leads are redemonstrated. Stable right-sided likely abandoned anterior ventri cular shunt catheter. There is no suspicious new focal air space opacity, pleural effusion, or pneumo thorax seen. The cardiac silhouette size remains within normal limits. The osseous structures are intact. IMPRESSION: No acute pulmonary process. [facility], , 07/02/2024 11:34 PM
[2024-07-02 23:47] LABS: ALT 11 U/L (4-34); African American GFR (CKD) >90 (>60 ml/min/1.73 sqM); Albumin 4.5 g/dL (3.5-5.0); Alkaline Phosphatase 87 U/L (38-126); Anion Gap 12 mmol/L; Blood Urea Nitrogen 10 mg/dL (7-17); Calcium 9.3 mg/dL (8.4-10.2); Carbon Dioxide 23 mmol/L (22-30); Chloride 102 mmol/L (98-107); Glucose 275 mg/dL (74-99); Non-African American GFR(CKD) >90 (>60 ml/min/1.73 sqM); Sodium 137 mmol/L (137-145); Total Bilirubin 0.6 mg/dL (0.2-1.3)
[2024-07-02 23:49] LABS: AST 28 U/L (14-36); Partial Thromboplastin Time 23.4 sec (22.0-30.0); Potassium 4.8 mmol/L (3.5-5.1); Prothrombin Time 10.7 sec (10.0-12.5)
[2024-07-02 23:56] LABS: NT-Pro-B-Type Natriuretic Pept 80 pg/mL
[2024-07-03 00:31] LABS: Glucose,Whole Blood 296 mg/dL (70-110)
[2024-07-03] MEDS: INSULIN REGULAR 100 UNIT/ML VIAL (IV) SQ STA (00:34)
[2024-07-03] MEDS: HYDROcodone/APAP 5-325MG 1 EACH TAB PO STA ×2 (00:36→00:37)
[2024-07-03] MEDS: SODIUM CHLORIDE 0.9% 1,000 ML IV ONE (01:00)
[2024-07-03 02:05] VITALS: BP 128/83; PULSE 82; TEMP 98.3
== END 2024-07-03 02:09 | disposition home or self-care (01) ==
LOC: EC 22:21
DX: E11.65 Type 2 diabetes mellitus with hyperglycemia (principal); R00.2 Palpitations; Z88.8 Allergy status to other drugs, medicaments and biological substances
CPT/HCPCS: 36415; 71046; 80053; 83605; 83880; 84484; 85025; 85610; 85730; 87636; 93005; 96360; 99285